=== PATIENT | female | born 1970 | race Caucasian/White ===

== ENCOUNTER 2019-07-26 08:46 | Emergency (ER) | payer SELFPAY ==
[2019-07-26 08:57] VITALS: BP 160/76; PULSE 91; RESP 18; TEMP 36.4; O2SAT 97; BMI 34.0
--- NOTE | 2019-07-26 09:03 | CT_ITS ---
WS: [id number] CT ABDOMEN AND PELVIS NONCONTRAST HISTORY: R flank/abdominal pain TECHNIQUE: Imaging performed through the abdomen and pelvis. Coronal and sagittal reformats are submi tted. All CT scans at [facility] use at least one of these dose optimization techniques: automated exposure control; mA and/or kV adjustment per patient size (includes targeted exams where d ose is matched to clinical indication); or iterative reconstruction. DLP: 1448.16 mGy.cm COMPARISON: None available. Lower thorax: Lung bases are clear. Small hiatal hernia. Subcentimeter lymph nodes associated with th e distal esophagus and retrocrural region. Liver: Normal, no mass or intrahepatic dilatation. Gallbladder: Stone within the central gallbladder measures 13 mm. No adjacent inflammation. Pancreas: Normal. Spleen: Normal. Adrenal glands: Normal. Right kidney: Very slight enlargement of the RIGHT kidney with mild dilatation of the renal pelvis an d ureter. Ureter is dilated throughout its course. There is a 5 mm calcification which is extruded in to the urinary bladder. There are a few additional nonobstructing calcifications in the RIGHT renal p josé miguel. Left kidney: Nonobstructing 8 mm calcification lower pole. No ureteral calcification or obstruction. Mild atherosclerosis with no aneurysm. No free fluid, intraperitoneal air or significant lymphadenopathy. GI tract: Normal appendix. No GI tract obstruction. There are numerous diverticula throughout the col on. Largest distribution in the distal descending and sigmoid colon. No acute inflammation. Abdominal wall: Intact. Pelvis: Normal uterus. No adnexal masses. RIGHT ovarian cyst/follicle measures 2.0 cm. Extruded stone from the RIGHT ureter in the urinary bladder measures 5 mm. Osseous structures: Unremarkable. CT/CT kidney stone [id number] IMPRESSION: 1. Mild RIGHT hydroureteronephrosis secondary to a recently expelled calcifica tion now in the urinary bladder measuring 5 mm. 2. Additional nonobstructing bilateral nephrolithiasis. 3. Cholelithiasis without evidence for acute cholecystitis. 4. Small hiatal hernia. 5. Normal appendix.
--- NOTE | 2019-07-26 09:04 | ED_ITS ---
HPI - Abdominal Pain General: Chief Complaint: Abdominal Pain Stated Complaint: r side pain/n/v Time Seen by Provider: 07/26/19 08:49 Source: patient and family Mode of arrival: ambulatory Limitations: no limitations History of Present Illness: HPI narrative: Patient is a 48-year-old female who presents to ED today with a complaint of right-sided back and abdominal pain that began fairly abruptly around 6 AM this morning. Patient tells me since pain started she has had 2 episodes of nonbloody vomit. She is also noticed a few episodes of non-bloody diarrhea. Patient does have a history of kidney stones although states she is never had to seek medical evaluation previously for this. Patient does admit to urinary urgency. She is not having any dysuria or hematuria. She has not been running fevers. She has been told previously she has gallstones. MD elicited complaint: abdominal pain Onset (ago): hour(s) Pain Consistency: constant Quality: stabbing and sharp Associated Symptoms: Reports diarrhea, nausea and vomiting; Denies chills, GI cramping, dysuria, fever(s), heartburn, hematochezia, hematuria, hematemesis and melena Review of Systems Const: Denies: fever(s) or chills Card: Denies: chest pain Resp: Denies: dyspnea GI: Reports: abdominal pain, nausea, vomiting and diarrhea; Denies: hematemesis, heartburn, GI cramping, hematochezia, melena, white/light colored stool or steatorrhea : Reports: flank pain, urinary urgency and urinary hesitancy; Denies: dysuria, oliguria, hematuria, vaginal odor, vaginal bleeding, vaginal discharge or pelvic pain Musc: Denies: neck pain, extremity pain, extremity swelling, joint pain or joint swelling Neuro: Denies: headache(s), numbness in extremities, weakness in extremities or sensory changes PFSH ED PFSH: Social History Smoking and tobacco status: never smoked Physical Exam Const: COMMON NORMALS: average body habitus, patient oriented x3, no limitations, healthy appearing, alert and well nourished GENERAL APPEARANCE: cooperative and in distress (appears uncomfortable) HENMT: COMMON NORMALS: normocephalic and atraumatic HEAD & SCALP: normocephalic and atraumatic Resp: COMMON NORMALS: normal respiratory effort and clear to auscultation bilaterally AUSCULTATION: clear to auscultation bilaterally Cardio: COMMON NORMALS: regular rate and regular rhythm RATE: regular rate RHYTHM: regular rhythm GI: COMMON NORMALS: Normal to inspection, nondistended, normoactive bowel sounds present, Soft to palpation, No hepatosplenomegaly present and no masses PALPATION: Yes Soft to palpation, Yes Tenderness to palpation present (GI) (R mid to lower abdomen; reports radiates from R flank; neg Felipe's) and Yes No hepatosplenomegaly present : BLADDER/KIDNEY EXAM: Yes CVA tenderness (R) Back/Pelvis: GENERAL BACK: Yes CVA tenderness (R) Extremity: COMMON NORMALS: normal to inspection Neuro: COMMON NORMALS: patient oriented x3 SENSORIUM/ORIENTATION: Yes alert Skin: COMMON NORMALS: no rashes or lesions noted GENERAL SKIN EXAM: no rashes or lesions noted Course Vital Signs: Vital signs: Vital Signs Temperature 97.5 F L 07/26/19 08:57 Pulse Rate 78 07/26/19 09:43 Respiratory Rate 18 07/26/19 08:57 Blood Pressure 151/88 07/26/19 09:43 Pulse Oximetry 97 07/26/19 09:43 MDM - Abdominal Pain MDM Narrative: Medical decision making narrative: pt feels much better now; she has not evidence for UTI along with her recently passed stone; CT showing R hydro related to a 5mm stone that she recently has passed and is now sitting in her bladder; will give her a urine strainer; she does not wish to follow up with urology at this time Lab Data: Labs: Lab Results 07/26/19 07/26/19 07/26/19 Range/Units 09:08 09:08 09:08 WBC 13.0 H (4.0-10.0) 10^3/ uL RBC 4.76 (4.1-5.3) 10^6/u L Hgb 14.6 (11.5-15.3) g/dL Hct 45.9 (37.0-47.0) % MCV 96.4 (81-99) fL MCH 30.7 (28.0-34.0) pg MCHC 31.8 (30.0-36.0) g/dL RDW 13.0 (12.1-15.1) % Plt Count 274 (130-400) 10^3/c mm MPV 11.5 H (7.4-10.4) fL Neut % (Auto) 82.9 % Lymph % (Auto) 11.1 % Adams % (Auto) 4.5 % Eos % (Auto) 0.7 % Baso % (Auto) 0.3 % Neut # (Auto) 10.8 H (1.8-7.7) 10^3/u L Lymph # (Auto) 1.4 (0.8-4.8) 10^3/u L Adams # (Auto) 0.6 (0.2-0.9) 10^3/u L Eos # (Auto) 0.1 (0.0-0.8) 10^3/u L Baso # (Auto) 0.0 (0.0-0.1) 10^3/u L Nucleated RBC % (a uto) 0 % Nucleated RBCs # 0.0 /100WBC Sodium 139 (136-145) mmol/L Potassium 4.5 (3.5-5.1) mmol/L Chloride 105 (98-107) mmol/L Carbon Dioxide 22 (22-29) mmol/L Anion Gap 16.5 (5-19) BUN 15 (6-20) mg/dL Creatinine 0.8 (0.5-0.9) mg/dL GFR Calculation 77.2 L (90-130) mL/min Glucose 121 H (65-115) mg/dL Calculated Osmolal ity 286 (285-295) mOsm/k g Calcium 9.4 (8.5-10.5) mg/dL Total Bilirubin 0.3 (0.15-1.2) mg/dL AST 17 (0-32) U/L ALT 23 (0-33) U/L Alkaline Phosphata se 85 (35-105) IU/L Total Protein 7.2 (6.6-8.7) g/dL Albumin 4.8 (3.5-5.2) g/dL Globulin 2.4 (1.3-4.6) g/dL Lipase 26 (13-60) U/L HCG, Qual Negative (Negative) Urine Color (Yellow) Urine Appearance (CLEAR) Urine pH (5-7) Ur Specific Gravit y (1.005-1.030) Urine Protein (Negative) Urine Glucose (UA) (Normal) Urine Ketones (Negative) Urine Blood (Negative) Urine Nitrate (Negative) Urine Bilirubin (NEGATIVE) Urine Urobilinogen (Negative) mg/dL Ur Leukocyte Olivia ase (Negative) Urine RBC (0-2) /hpf Urine WBC (0-5) /hpf Ur Squamous Epith Cells (0-5) Amorphous Sediment Urine Bacteria (NONE) Urine Mucus 07/26/19 Range/Units 09:49 WBC (4.0-10.0) 10^3/ uL RBC (4.1-5.3) 10^6/u L Hgb (11.5-15.3) g/dL Hct (37.0-47.0) % MCV (81-99) fL MCH (28.0-34.0) pg MCHC (30.0-36.0) g/dL RDW (12.1-15.1) % Plt Count (130-400) 10^3/c mm MPV (7.4-10.4) fL Neut % (Auto) % Lymph % (Auto) % Adams % (Auto) % Eos % (Auto) % Baso % (Auto) % Neut # (Auto) (1.8-7.7) 10^3/u L Lymph # (Auto) (0.8-4.8) 10^3/u L Adams # (Auto) (0.2-0.9) 10^3/u L Eos # (Auto) (0.0-0.8) 10^3/u L Baso # (Auto) (0.0-0.1) 10^3/u L Nucleated RBC % (a uto) % Nucleated RBCs # /100WBC Sodium (136-145) mmol/L Potassium (3.5-5.1) mmol/L Chloride (98-107) mmol/L Carbon Dioxide (22-29) mmol/L Anion Gap (5-19) BUN (6-20) mg/dL Creatinine (0.5-0.9) mg/dL GFR Calculation (90-130) mL/min Glucose (65-115) mg/dL Calculated Osmolal ity (285-295) mOsm/k g Calcium (8.5-10.5) mg/dL Total Bilirubin (0.15-1.2) mg/dL AST (0-32) U/L ALT (0-33) U/L Alkaline Phosphata se (35-105) IU/L Total Protein (6.6-8.7) g/dL Albumin (3.5-5.2) g/dL Globulin (1.3-4.6) g/dL Lipase (13-60) U/L HCG, Qual (Negative) Urine Color Yellow (Yellow) Urine Appearance Hazy A (CLEAR) Urine pH 5 (5-7) Ur Specific Gravit y 1.025 (1.005-1.030) Urine Protein Neg (Negative) Urine Glucose (UA) Norm (Normal) Urine Ketones Negative (Negative) Urine Blood 2+ H (Negative) Urine Nitrate Negative (Negative) Urine Bilirubin Neg (NEGATIVE) Urine Urobilinogen Norm (Negative) mg/dL Ur Leukocyte Olivia ase Negative (Negative) Urine RBC 5-10 H (0-2) /hpf Urine WBC 5-10 H (0-5) /hpf Ur Squamous Epith Cells 5-10 H (0-5) Amorphous Sediment 1+ Urine Bacteria Trace (NONE) Urine Mucus 1+ Imaging Data ^: CT Abd/Pel: Radiologist's impression: [place] [address] CT Scan Report Signed Patient: Farzana Chew Unit #: [id number] : 1970 Age/Sex: 48 / F ADM Date: 07/26/19 Loc: ER Room/Bed: Attending Dr: Ordering Provider/Ordering MD: Aimee Osuna Date of Service: 07/26/19 Procedure(s): CT kidney stone [id number] Accession Number(s): [id number] Report Number: [id number] WS: [id number] CT ABDOMEN AND PELVIS NONCONTRAST HISTORY: R flank/abdominal pain TECHNIQUE: Imaging performed through the abdomen and pelvis. Coronal and sagittal reformats are submitted. All CT scans at [facility] use at least one of these dose optimization techniques: automated exposure control; mA and/or kV adjustment per patient size (includes targeted exams where dose is matched to clinical indication); or iterative reconstruction. DLP: 1448.16 mGy.cm COMPARISON: None available. Lower thorax: Lung bases are clear. Small hiatal hernia. Subcentimeter lymph nodes associated with the distal esophagus and retrocrural region. Liver: Normal, no mass or intrahepatic dilatation. Gallbladder: Stone within the central gallbladder measures 13 mm. No adjacent inflammation. Pancreas: Normal. Spleen: Normal. Adrenal glands: Normal. Right kidney: Very slight enlargement of the RIGHT kidney with mild dilatation of the renal pelvis and ureter. Ureter is dilated throughout its course. There is a 5 mm calcification which is extruded into the urinary bladder. There are a few additional nonobstructing calcifications in the RIGHT renal pelvis. Left kidney: Nonobstructing 8 mm calcification lower pole. No ureteral calcification or obstruction. Mild atherosclerosis with no aneurysm. No free fluid, intraperitoneal air or significant lymphadenopathy. GI tract: Normal appendix. No GI tract obstruction. There are numerous diverticula throughout the colon. Largest distribution in the distal descending and sigmoid colon. No acute inflammation. Abdominal wall: Intact. Pelvis: Normal uterus. No adnexal masses. RIGHT ovarian cyst/follicle measures 2.0 cm. Extruded stone from the RIGHT ureter in the urinary bladder measures 5 mm. Osseous structures: Unremarkable. CT/CT kidney stone [id number] IMPRESSION: 1. Mild RIGHT hydroureteronephrosis secondary to a recently expelled calcification now in the urinary bladder measuring 5 mm. 2. Additional nonobstructing bilateral nephrolithiasis. 3. Cholelithiasis without evidence for acute cholecystitis. 4. Small hiatal hernia. 5. Normal appendix. Dictated By: Laquita Tucker DO Signed By: Laquita Tucker DO Signed Date/Time: 07/26/19936 DD/ 0 Discharge Plan Discharge Patient Disposition: Home, Self-Care Clinical Impression: Right ureteral stone Condition: Stable Prescriptions: New hydrocodone-acetaminophen 5-325 mg tablet 1 tab PO Q6H PRN (Reason: pain) Qty: 14 RF: 0 ondansetron HCl [Zofran] 4 mg tablet 4 mg PO Q6H PRN (Reason: nausea and vomiting) Qty: 14 RF: 0 No Action norethindrone (contraceptive) 0.35 mg tablet 0.35 mg PO DAILY RF: 0 Discharge Orders: Discharge Order (Routine); Ordered 07/26/19 Ordered By: Aimee Osuna Referrals: Tao Vigil MD [Primary Care Provider] - Patient Instructions: Kidney Stones (ED), How to Strain Your Urine (ED), Hydronephrosis (ED) Activity Restrictions/Additional Instructions: Please return to the emergency department for any worsening/uncontrollable pain, repetitive episodes of vomiting, fevers, painful urination, or any other concerns you may have. Coding Level of Care Code ED [employer] Fwd Exam Comprehensive
[2019-07-26] MEDS: morphine 4 mg/mL SDV 1 mL IVP (09:09)
[2019-07-26] MEDS: ketorolac 60 mg/2 mL INJ 30 MG IVP (09:09)
[2019-07-26] MEDS: ondansetron 2 mg/ML SDV 2 mL 4 MG IVP (09:09)
[2019-07-26 09:14] VITALS: O2SAT 100
[2019-07-26 09:16] LABS: Basophils % 0.3 %; Eosinophils # 0.1 10^3/uL (0.0-0.8); Eosinophils % 0.7 %; Hematocrit 45.9 % (37.0-47.0); Hemoglobin 14.6 g/dL (11.5-15.3); Lymphocytes # 1.4 10^3/uL (0.8-4.8); Lymphocytes % 11.1 %; Mean Corpuscular HGB Conc 31.8 g/dL (30.0-36.0); Mean Corpuscular Hemoglobin 30.7 pg (28.0-34.0); Mean Corpuscular Volume 96.4 fL (81-99); Mean Platelet Volume 11.5 fL (7.4-10.4); Monocytes # 0.6 10^3/uL (0.2-0.9); Monocytes % 4.5 %; Neutrophils # 10.8 10^3/uL (1.8-7.7); Neutrophils % 82.9 %; Nucleated Red Blood Cells % 0 %; Platelet Count 274 10^3/cmm (130-400); Red Blood Count 4.76 10^6/uL (4.1-5.3)
--- NOTE | 2019-07-26 09:19 | PC.NURSE ---
pt transported to CT by stretcher with tech
[2019-07-26 09:25] LABS: HCG, Serum Qual Negative (Negative)
[2019-07-26 09:33] LABS: Alanine Aminotransferase 23 U/L (0-33); Albumin Level 4.8 g/dL (3.5-5.2); Alkaline Phosphatase 85 IU/L (35-105); Anion Gap 16.5 (5-19); Aspartate Amino Transferase 17 U/L (0-32); Blood Urea Nitrogen 15 mg/dL (6-20); Calcium 9.4 mg/dL (8.5-10.5); Carbon Dioxide 22 mmol/L (22-29); Chloride 105 mmol/L (98-107); Globulin 2.4 g/dL (1.3-4.6); Glomerular Filtration Rate 77.2 mL/min (90-130); Glucose 121 mg/dL (65-115); Lipase 26 U/L (13-60); Osmolality Calculated 286 mOsm/kg (285-295); Potassium 4.5 mmol/L (3.5-5.1); Sodium 139 mmol/L (136-145); Total Bilirubin 0.3 mg/dL (0.15-1.2); Total Protein 7.2 g/dL (6.6-8.7)
[2019-07-26 09:43] VITALS: BP 151/88; PULSE 78; O2SAT 97
[2019-07-26 10:03] LABS: Urine Appearance Hazy (CLEAR); Urine Color Yellow (Yellow); pH Urine 5 (5-7)
[2019-07-26 10:04] LABS: Add Urine Microscopic? YES; Bilirubin Urine Neg (NEGATIVE); Blood Urine 2+ (Negative); Glucose Urine UA Norm (Normal); Ketones Urine Negative (Negative); Leukocyte Esterase Urine Negative (Negative); Nitrate Urine Negative (Negative); Protein Urine Neg (Negative); Specific Gravity, Urine 1.025 (1.005-1.030); Urobilinogen Urine Norm (Negative)
[2019-07-26 10:06] LABS: Bacteria Urine TRACE
[2019-07-26 10:07] LABS: Add Urine Culture? No; Amorphous Sediment Urine 1+; Mucus Urine 1+
[2019-07-26 10:20] VITALS: BP 140/82; PULSE 83; O2SAT 97
--- NOTE | 2019-07-26 10:20 | PC.NURSE ---
20 g IV removed from LAC. tip intact, pressure dressing applied
== END 2019-07-26 10:20 | disposition home or self-care (01) ==
PROVIDERS: Emergency Provider Physician Assistant; Family Provider Family Medicine; PCP Family Medicine
DX: N20.1 Calculus of ureter (principal)
CPT/HCPCS: 12345; 36415; 74176; 80053; 81001; 83690; 84703; 85025; 96374; 96375; 99283; J1885; J2270; J2405